=== PATIENT | male | born 1990 | race Caucasian/White ===

== ENCOUNTER 2021-01-19 14:53 | Outpatient (REF) | payer OTHER, SELFPAY ==
[2021-01-21 15:05] LABS: COVID-19 RT-PCR UVMMC Result Negative (Negative)
== END 2021-01-19 14:54 | disposition home or self-care (01) ==
LOC: LBN 14:53
PROVIDERS: PCP Nurse Practitioner Family; Visit Provider Physician Assistant Medical
DX: Z20.822 Contact with and (suspected) exposure to COVID-19 (principal); J06.9 Acute upper respiratory infection, unspecified
CPT/HCPCS: U0003

== ENCOUNTER 2022-04-05 02:52 | Outpatient (CLI) | payer OTHER, SELFPAY ==
[2022-04-05 08:09] LABS: Glucose 125 mg/dL (74-106)
== END 2022-04-05 02:53 | disposition home or self-care (01) ==
LOC: LBO 02:52
PROVIDERS: PCP Nurse Practitioner Family; Visit Provider Nurse Practitioner Family
DX: Z13.1 Encounter for screening for diabetes mellitus (principal)
CPT/HCPCS: 36415; 82947

== ENCOUNTER 2024-10-10 18:00 | Emergency (ER) | payer OTHER, SELFPAY ==
[2024-10-10] VITALS (125 sets, daily range): BP systolic 118–152; BP diastolic 79–99; PULSE 72–106; RESP 10–32; TEMP 36.8–37.1; O2SAT 94–100
--- NOTE | 2024-10-10 18:00 | RT.EKG_ITS ---
APPROVED REPORT Exam: Resting ECG Reason for Exam: sob, muscle pain Patient Location: E HR:92 bpm ECG Measurements Heart Rate 92 AXIS VA 112 P 77 QRSd 85 QRS 75 QT 326 T 49 QTc 405 Conclusion Sinus rhythm...normal P axis, V-rate 60- 99 HYPERACUTE T WAVES
--- NOTE | 2024-10-10 18:29 | W.ED.GENAD ---
Discharge Plan Disposition Patient Disposition: Transfer-Acute Inpatient Care Specific Acute Inpt Facility: [facility] Condition: Stable Discharge Details Clinical Impression: Acute coronary syndrome, Non-STEMI (non-ST elevated myocardial infarction) Primary Care Provider: Unknown,Unknown ED Provider: Oseas Link Home Meds and New Rx's Prescriptions: Continued multivitamin Tablet 1 tab PO DAILY HPI General Date/Time Provider Initiated Documentation: 10/10/24 18:17. HPI Narrative: Patient presents emergency department stating that on Tuesday he started feeling mild shortness of breath when he did his routine from work. 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 Also reported that he started having some back chest wall pain was due to twisting it. This morning he woke up at 3 in the morning with a pressure sensation in the anterior part of his chest every to his back and went down both arms. States that this sensation lasted about 1 hour and got relieved after taking 2 episodes. 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 He went home after the chiropractor visit in the morning but decided to go to urgent care earlier this afternoon but he was concerned and urgent care sent him here for they were closing and have the resources to help him. Here he states he is completely pain-free does not have the sensation but is concerned especially because of what happened earlier this morning at 3 AM. He has no family history of heart disease no h/o high cholesterol does not smoke cigarettes or drink alcohol Related Data Home Medications ?Medication ?Instructions ?Recorded ?Confirmed multivitamin 1 tab PO DAILY 03/18/21 10/10/24 Allergies Allergy/AdvReac Type Severity Reaction Status Date / Time No Known Allergies Allergy Verified 10/10/24 18:21 General Stated Complaint: SOB BRAD: 3 Review of Systems Narrative: Review of Systems: Constitutional: No fevers, chills, sweats Eye: No recent visual problems ENT: No ear pain, nasal congestion, sore throat Respiratory: No shortness of breath, cough Cardiovascular: No Chest pain at this time, palpitations, syncope Gastrointestinal: No nausea, vomiting, diarrhea Genitourinary: No hematuria Rodolfo/Lymph: Negative for bruising tendency, swollen lymph glands Endocrine: Negative for excessive thirst, excessive hunger Musculoskeletal: No back pain, neck pain, joint pain, muscle pain, decreased range of motion Integumentary: No rash, pruritus, abrasions Neurologic: Alert & oriented X 4 Psychiatric: No anxiety, depression Exam Narrative Exam Narrative: Exam; vitals signs as reported above normal Constitutional; In no acute distress, afebrile General: cooperative, healthy appearing, comfortable and no acute distress HEENT: Head: normal to inspection, no palpable skull fracture and normocephalic atraumatic Eyes: : appearance normal, both eyes and all related structures EOM intact bilaterally Pupils: PERRL : conjunctiva normal Direct ophthalmoscopy: normal light reflex, normal conjunctiva, normal visual acuity Ears: Normal TM, normal external canal Nose: normal no rhinorreha Neck no JVD, supple non tender Neck: normal visual inspection, full ROM and no lymphadenopathy Chest: normal inspection of the chest Respiratory : normal respiratory effort and able to speak in complete sentences no wheezing no rales Cardio Rate: regular rate, rhythm: regular rhythm normal heart sounds S1 and S2 no murmurs, gallops, or rubs GI : normal to inspection, normal bowel sounds, soft, non tender, non distended, no organomegaly Back/Spine/ no CVA tenderness Thoracic/Lumbar Spine: no tenderness or deformities Skin no rashes or lesions Neuro: patient alert oriented x 4 and no meningeal signs, Cranial Nerves: CN's II-XI intact bilaterally, Cognition: normal cognition, Speech: speech normal, Gait: normal gait, Depp tendon reflexes normal 2+ muscle strength 5/5 bilaterally Extremities, no edema, full range of motion, normal strength Course Vital Signs Vital signs: Vital Signs Temperature 37.1 C 10/10/24 18:05 Pulse 106 H 10/10/24 18:05 Respiratory Rate 20 10/10/24 18:05 Blood Pressure 118/82 10/10/24 18:05 Pulse Oximetry 98 10/10/24 18:05 Temperature 36.8 C 10/10/24 18:22 Temperature Source Oral 10/10/24 18:22 Pulse 106 H 10/10/24 18:22 Respiratory Rate 20 10/10/24 18:22 Blood Pressure 118/82 10/10/24 18:22 Blood Pressure Position Sitting 10/10/24 18:05 Pulse Oximetry 98 10/10/24 18:22 Oxygen Delivery Method Room Air 10/10/24 18:22 Oxygen Flow Rate 0 10/10/24 18:05 Pain Level 0 10/10/24 18:05 Medical Decision Making MDM: Summary: patient who emergency department stating that on Tuesday he started feeling mild shortness of breath when he did his routine from work. 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 Also reported that he started having some back chest wall pain was due to twisting it. This morning he woke up at 3 in the morning with a pressure sensation in the anterior part of his chest every to his back and went down both arms. States that this sensation lasted about 1 hour and got relieved after taking 2 episodes. 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 He went home after the chiropractor visit in the morning but decided to go to urgent care earlier this afternoon but he was concerned and urgent care sent him here for they were closing and have the resources to help him. Here he states he is completely pain-free does not have the sensation but is concerned especially because of what happened earlier this morning at 3 AM. In the emergency department patient completely for history of shortness of breath, patient bedside echocardiogram and an EKG done within normal limits she also had CT of the aorta pulmonary vessels that did not show dissection or kidney embolus. According I spoke with cardiology service I do not suspect [facility] in the setting patient for cardiac catheterization.. He was given metoprolol 5 mg x 2, 325 chewable aspirin, loaded with Brilinta 180 mg p.o. and heparin. He will be transported to the [facility] for cardiac catheterization if he still remains pain-free Data Review Analysis All the data on this patient was reviewed by me including laboratory and imaging studies as well as bedside studies performed by me Independent review of Studies Imaging Patient had a [id number] ultrasound done shows normal LV no pericardial effusion no evidence of regional wall abnormalities, CT angiogram of the thoracic and abdominal aorta shows no pulm embolism no aortic dissection Lab: Labs unremarkable except for the troponin that is elevated at 7000 range but has not significantly increased here in the ED Risk Stratification: Patient presented with episode of chest pressure that had early this morning at 3 AM his troponin is elevated with a normal EKG and normal echocardiogram with a transfer to [facility] for cardiac catheterization. He was accepted by the cardiology service by Dr. Hughes Differential Diagnosis: 1. Acute coronary syndrome 2. Non-STEMI 3. Aortic dissection 4. Pulmonary embolus 5. Coronary vasospasm Consultants: Consulted with cosmetic maker representing Dr. Hughes at [facility] Shared disposition: Patient is since disposition and understands that he will need to be transferred to [facility] for cardiac catheterization Impression: Lab Data Lab results reviewed: Yes I reviewed the patient's lab results. ECG Data Attestation: I personally reviewed and interpreted this ECG (s) as follows: Prior ECG tracings: available for review Interpretation: Heart rate 82 hyperacute T waves V2 to [address]-T changes Core Measures AMI Core Measures Followed: Yes Critical Care Time Critical Care Time Critical Care Time: Yes Total Critical Care Time: 45 Attestation: 45 minutes of critical care time excluding procedures PFSH All Active Problems (Updated 10/10/24 @ 23:15 by Oseas Link MD) Non-STEMI (non-ST elevated myocardial infarction) (Acute) Acute coronary syndrome (Acute) IFG (impaired fasting glucose) (Acute) Medical History Low back pain Left humeral fracture (03/28/99) Surgical History Status post wisdom tooth extraction (~2011) Family History Brother Diabetes Type II Maternal Grandmother Neoplasm Unknown Paternal Grandmorther CHF (congestive heart failure) Brother No problems noted. Mother No problems noted. Father Essential hypertension Social History Smoking/Tobacco Use Status: Never Smoking risk assessment performed?: Yes Alcohol Intake: current Alcohol Intake frequency: a few times a week Alcohol type: beer Drug use: Rarely Substance use type: marijuana Counseling given: No Adopted: No Caregiver/Support person: No Foster care: No Household members: spouse Housing: house Number of Children: 1 Communication Needs: None Education Level: high school Do you need help understanding health information?: Rarely current occupation: Self employed - Farming Pets and animals: Yes Pets and animals: cat(s) and farm animals Sexually active: Yes Do you think of yourself as: straight/heterosexual Current gender identity: male What is your relationship status?: How often do you talk on the phone with friends or family?: twice per week How often do you get together with friends or relatives?: once per week Do you belong to any clubs or organized social groups?: no Panel score (0-1 are the most socially isolated patients): 2 What type of physical activity do you participate in: other Details: Active with farm activities Frequency: daily Yue/Pentecostalism: None Special yue needs: No Seatbelt use: always Helmet use: Yes Drive intox or ride w/intox class b truck driver: No Water heater temp set <120 deg: Yes Working smoke detector in home: Yes Fire extinguisher in home: Yes Carbon monox detector in home: Yes Firearms in home: Yes Firearms unloaded and locked: Yes Do you feel safe at home: Yes Do you feel safe in your relationship?: Yes Victim of physical abuse: No Victim of emotional abuse: No Victim of sexual abuse: No POCUS Exam (ED) Limited Cardiac Exam DATE OF EXAM: 10/10/24 TIME OF EXAM: 20:15 PROVIDER THAT PERFORMED THE STUDY: Oseas Link REASON FOR EXAM: Chest pain and Dyspnea VISUALIZED STRUCTURES: Four Chambers, Left atrium, Left ventricle, LVOT, Right atrium, Right ventricle, Aortic valve, Mitral valve, Interventricular septum and IVC VIEW OBTAINED: Apical 4-Chamber, Parasternal long-axis, Parasternal short-axis and Subxiphoid PERTINENT FINDINGS/IMPRESSION: No apparent abnormalities DIFFERENTIAL DIAGNOSES: Rule out PE for acute coronary syndrome Exam complete Vital Signs & Lab Results Vital Signs Most Recent Vital Signs: Most Recent Vital Signs Temp Pulse Resp BP Pulse Ox 36.8 C 85 21 140/86 96 10/10/24 18:22 10/10/24 23:16 10/10/24 23:16 10/10/24 23:16 10/10/24 23:16 Lab Results 10/10/24 19:19 08/13/25 19:19 Complete Blood Count: WBC, (4.4-10.8) 7.15 10^3/uL Today, 19:19 RBC, (4.36-5.78) 5.10 10^6/uL Today, 19:19 Hgb, (13.5-17.5) 14.5 g/dL Today, 19:19 Hct, (40.0-50.0) 43.6 % Today, 19:19 Plt Count, (130-400) 281 10^3/uL Today, 19:19 Complete Metabolic Panel: Sodium, (136-145) 140 mmol/L Today, 19:19 Potassium, (3.5-5.1) 4.0 mmol/L Today, 19:19 Chloride, (98-107) 103 mmol/L Today, 19:19 Carbon Dioxide, (21.0-32.0) 31.0 mmol/L Today, 19:19 BUN, (7-18) 18 mg/dL Today, 19:19 Creatinine, (0.70-1.30) 1.1 mg/dL Today, 19:19 Est GFR (CKD-EPI 2020), (mL/min/1.73m2) 89.78 Today, 19:19 Magnesium, (1.8-2.4) 2.0 mg/dL Today, 19:19 Calcium, (8.5-10.1) 9.5 mg/dL Today, 19:19 Albumin, (3.4-5.0) 4.2 g/dL Today, 19:19 Glucose, (74-106) 141 mg/dL H Today, 19:19 Liver Function Panel: ALT, (16-63) 48 U/L Today, 19:19 AST, (15-37) 61 U/L H Today, 19:19 Coagulation Panel: INR, (0.9-1.1) 1.0 Today, 19:19 PT, (9.1-11.1) 10.3 sec Today, 19:19 APTT, (20.6-30.2) 28.3 sec Today, 19:19 D-Dimer, (<500) 225 ng/mlFEU Today, 19:19 Cardiac Panel: Troponin I, (<or=76) 7187 ng/L H* Today
[2024-10-10 19:29] LABS: Abs Immature Grans 0.03 10^3/uL (0.0-0.06); HCT 43.6 % (40.0-50.0); HGB 14.5 g/dL (13.5-17.5); Immature Grans % 0.4 %; MCH 28.4 pg (27.0-33.0); MCHC 33.3 % (32.0-36.0); MCV 86 fL (80-95); MPV 8.8 fL (8.0-11.0); Platelet Count 281 10^3/uL (130-400); RBC 5.10 10^6/uL (4.36-5.78); RDW 12.9 % (11.8-14.1); RDW-SD 39.7 fL; WBC 7.15 10^3/uL (4.4-10.8)
[2024-10-10 19:46] LABS: INR 1.0 (0.9-1.1); PTT Activated 28.3 sec (20.6-30.2); Prothrombin Time 10.3 sec (9.1-11.1)
[2024-10-10 19:56] LABS: ALT 48 U/L (16-63); AST 61 U/L (15-37); Albumin 4.2 g/dL (3.4-5.0); Alkaline Phosphatase 130 U/L (46-116); Anion Gap 6.0 mmol/L (3-11); BUN 18 mg/dL (7-18); Bilirubin, Total 0.3 mg/dL (0.2-1.0); CO2 31.0 mmol/L (21.0-32.0); Calcium 9.5 mg/dL (8.5-10.1); Chloride 103 mmol/L (98-107); Estimated GFR 89.78 (mL/min/1.73m2); Glucose 141 mg/dL (74-106); Magnesium 2.0 mg/dL (1.8-2.4); Potassium 4.0 mmol/L (3.5-5.1); Sodium 140 mmol/L (136-145); Total Protein 7.9 g/dL (6.4-8.2)
[2024-10-10 19:57] LABS: Troponin I 6698 ng/L (<or=76)
[2024-10-10 20:09] LABS: D-Dimer 225 ng/mlFEU (<500)
[2024-10-10 20:47] LABS: Troponin I 7140 ng/L (<or=76)
--- NOTE | 2024-10-10 20:59 | DI.CT_ITS ---
Exam(s) CT THORAX ABD/PEL CTA EXAM: CT THORAX ABD/PEL CTA CLINICAL HISTORY: CHEST PAIN. TECHNIQUE: Imaging Protocol: Axial CT angiography was performed with multi- slice acquisition and multi-planar and/or 3D reconstructions. CONTRAST MATERIAL: Intravenous: Omnipaque 350 Contrast volume:100 mL Oral: No COMPARISON: No exams were available for comparison FINDINGS: CHEST: Pulmonary Arteries: No evidence of filling defect to suggest pulmonary emboli. Tracheobronchial tree: Patent where visualized. Mediastinum and Rola: No dominant adenopathy or fluid collection. Pulmonary parenchyma: No consolidation or dominant measurable mass. No architectural distortion. Pleura: No effusion or pneumothorax. Heart: The heart is not dilated. No coronary artery calcifications are seen. Aorta: Thoracic aorta non-dilated. No atherosclerotic changes. Bones: Normal. Tubes, Catheters, and Lines: None Abdominal and pelvic vasculature: Abdomen: No atherosclerotic changes. Celiac axis/mesenteric arteries: No evidence of occlusion or significant stenosis. Renal Arteries: No evidence of occlusion or significant stenosis. There is a single renal artery perfusing each kidney. Aorta: No evidence of occlusion or significant stenosis. No aneurysm or dissection. Pelvis: No atherosclerotic changes. Iliac Arteries: No evidence of occlusion or significant stenosis. Common Femoral Arteries: No evidence of occlusion or significant stenosis. ABDOMEN: Liver: Normal density. No measurable mass. Portal, Superior Mesenteric, and Splenic Veins: Unremarkable. Gallbladder and Biliary Tract: No radiodense calculus or dilation. Pancreas: Normal density, no abnormal calcifications or inflammatory process. Spleen: Normal. Adrenals: No masses seen. Kidneys: Normal size, contour and axis. No radiodense stones or obstructive uropathy. No masses seen. Bowel: No obstruction or bowel wall thickening. Appendix is unremarkable. Normal quantity of stool. Peritoneal Cavity: No ascites, collection or mesenteric inflammatory response. Lymph Nodes: Within normal limits. Bones: Unremarkable. Soft Tissues: Tiny fat containing umbilical hernia. PELVIS: Bladder: Symmetric distention, no gross wall thickening. Reproductive Organs: Unremarkable as visualized. Lymph Nodes: Within normal limits. Bones: Within normal limits. IMPRESSION: Normal CT Angiogram of the chest, abdomen and pelvis. The preliminary [facility] report was reviewed. RADIATION DOSE DELIVERED: 877.97mGy.cm Total DLP DATA REPOSITORY: All CT scans at this facility are submitted to the National Radiology Data Registry (NRDR) Dose Index Registry (DIR) with the [employer] (ACR). RADIATION OPTIMIZATION: All CT scans at this facility use at least one of these dose optimization techniques: automated exposure control; mA and/or kV adjustment per patient size (includes targeted exams where dose is matched to clinical indication); or iterative reconstruction.
[2024-10-10] MEDS: Metoprolol 5 MG/5 ML VIAL IVP ×2 (21:07→21:47)
[2024-10-10] MEDS: Aspirin 81 MG CHEW 325 MG CH (21:07)
[2024-10-10] MEDS: Normal Saline - Diluent 50 ML VIAL IJ (21:12)
[2024-10-10] MEDS: Omnipaque 350 MG/ML 100 ML BTL IJ (21:12)
[2024-10-10] MEDS: Normal Saline Flush 10 ML SYR IVP (21:13)
--- NOTE | 2024-10-10 21:53 | DI.[facility]_ITS ---
PROCEDURE INFORMATION: Exam: CTA Chest With Contrast CTA Abdomen and Pelvis With Contrast Exam date and time: 10/10/2024 9:12 PM Age: 34 years old Clinical indication: Other: Chest pain, dissection TECHNIQUE: Imaging protocol: Computed tomographic angiography of the chest with contrast. Exam focused on the arteries. Computed tomographic angiography of the abdomen and pelvis with contrast. Exam focused on the arteries. 3D rendering (Not supervised by radiologist): MIP and/or 3D reconstructed images were created by the technologist. Contrast material: OMNIPAQUE 350; Contrast volume: 100 ml; Contrast route: INTRAVENOUS (IV); COMPARISON: No relevant prior studies available. FINDINGS: VASCULATURE: Pulmonary arteries: No pulmonary embolism identified. Aorta: No thoracic or abdominal aortic aneurysm or dissection. Celiac trunk and mesenteric arteries: Celiac artery, superior mesenteric artery, and inferior mesenteric artery widely patent. Renal arteries: Right and left renal arteries widely patent bilaterally. Right iliac arteries: Right common iliac, internal iliac, and external iliac arteries widely patent. Right femoral/popliteal arteries: Right common femoral and visualized proximal right superficial femoral arteries widely patent. Left iliac arteries: Left common iliac, internal iliac, and external iliac arteries widely patent. Left femoral/popliteal arteries: Left common femoral and visualized proximal left superficial femoral arteries widely patent. Thyroid: Normal-sized thyroid gland. CHEST: Lungs: No pulmonary consolidation. Pleural spaces: No pleural effusion or pneumothorax. Heart: Normal-sized heart. No pericardial effusion. ABDOMEN AND PELVIS: Liver: Probable fatty infiltration of the liver, difficult to confidently diagnose by CT imaging after administration of intravenous contrast. Gallbladder and biliary ducts: Gallbladder partially collapsed. No calcified gallstones seen. No biliary dilatation. Pancreas: Normal appearing pancreas. Spleen: Normal appearing spleen. Adrenal glands: Normal appearing adrenal glands. Kidneys and ureters: Normal appearing kidneys. No hydronephrosis. No obstructing ureteral stones. Stomach and bowel: No oral contrast. Stomach partially decompressed. No small bowel dilatation to suggest obstruction. Normal-appearing colon. No evidence of diverticulitis or colitis. Appendix: Normal appendix. Intraperitoneal space: No gross ascites or free air. Urinary bladder: Urinary bladder partially collapsed but grossly unremarkable, as seen. Reproductive: Normal-appearing prostate gland and seminal vesicles. Lymph nodes: No pathologically enlarged mediastinal or hilar lymph nodes. Scattered small mesenteric lymph nodes, nonspecific. Bones/joints: No acute fracture seen among the bones of the chest, abdomen, or pelvis. Soft tissues: No gross soft tissue mass or fluid collection seen in the chest wall. Small fat containing ventral hernia at the umbilicus. IMPRESSION: 1. No thoracic or abdominal aortic aneurysm or dissection. 2. Probable fatty infiltration of the liver, difficult to confidently diagnose by CT imaging after administration of intravenous contrast. Dictated and Authenticated by: Lokesh Vega MD. Orderin Fariba Farooq MD
[2024-10-10] MEDS: Heparin in 0.45% NaCl 25,000 UNIT/250 ML BAG 10 UNIT IVINF (22:51)
[2024-10-10 23:10] LABS: Troponin I 7187 ng/L (<or=76)
[2024-10-10 23:17] LABS: PTT Activated 29.4 sec (20.6-30.2)
== END 2024-10-11 00:09 | disposition short-term general hospital (02) ==
PROVIDERS: Emergency Provider Emergency Medicine Emergency Medical Services
DX: I21.4 Non-ST elevation (NSTEMI) myocardial infarction (principal); I24.9 Acute ischemic heart disease, unspecified
CPT/HCPCS: 36415; 71275; 80053; 85027; 93005; 93308; 96365; 96375; 99291; 74174; 83735; 84484; 85025; 85379; 85610; 85730; 93010; J1644; J3490

== ENCOUNTER 2024-11-06 08:18 | Outpatient (CLI) | payer OTHER, SELFPAY ==
[2024-11-06 12:47] LABS: Abs Immature Grans 0.01 10^3/uL (0.0-0.06); HCT 44.0 % (40.0-50.0); HGB 14.8 g/dL (13.5-17.5); Immature Grans % 0.2 %; MCH 29.1 pg (27.0-33.0); MCHC 33.6 % (32.0-36.0); MCV 86 fL (80-95); MPV 8.9 fL (8.0-11.0); Platelet Count 266 10^3/uL (130-400); RBC 5.09 10^6/uL (4.36-5.78); RDW 12.9 % (11.8-14.1); RDW-SD 40.2 fL; WBC 5.59 10^3/uL (4.4-10.8)
[2024-11-06 13:37] LABS: ALT 40 U/L (16-63); AST 16 U/L (15-37); Albumin 4.3 g/dL (3.4-5.0); Alkaline Phosphatase 122 U/L (46-116); Anion Gap 7.2 mmol/L (3-11); BUN 17 mg/dL (7-18); Bilirubin, Total 0.4 mg/dL (0.2-1.0); CO2 30.8 mmol/L (21.0-32.0); Calcium 9.3 mg/dL (8.5-10.1); Chloride 102 mmol/L (98-107); Estimated GFR 89.78 (mL/min/1.73m2); Glucose 90 mg/dL (74-106); Potassium 4.5 mmol/L (3.5-5.1); Sodium 140 mmol/L (136-145); Total Protein 7.8 g/dL (6.4-8.2)
[2024-11-06 16:38] LABS: GGT 26 U/L (15-85)
[2024-11-06 17:13] LABS: Vitamin D 25 Total 35 ng/mL (30-100)
[2024-11-07 12:08] LABS: Lyme Ab w Rflx to Lyme Confirm Negative (Negative)
[2024-11-08 22:37] LABS: B. miyamotoi PCR Negative (Negative); Babesia divergens/MO-1 Negative (Negative); Ehrlichia muris eauclairensis Negative (Negative)
== END 2024-11-06 08:19 | disposition home or self-care (01) ==
LOC: LBO 11-07 08:18
PROVIDERS: Visit Provider Nurse Practitioner Family
DX: I40.1 Isolated myocarditis (principal); R10.2 Pelvic and perineal pain; R74.8 Abnormal levels of other serum enzymes
CPT/HCPCS: 36415; 80053; 82306; 87798; 82977; 85025; 86618

== ENCOUNTER 2024-11-06 15:03 | Outpatient (REF) | payer OTHER, SELFPAY | END 2024-11-06 15:04 | disposition home or self-care (01) | LOC: NCHCN 15:03 | PROVIDERS: Visit Provider Nurse Practitioner Family | DX: R10.2 Pelvic and perineal pain (principal) | CPT/HCPCS: 87086 ==

== ENCOUNTER → 2025-02-09 14:30 | Outpatient (CLI) | payer OTHER, SELFPAY ==
--- NOTE | 2025-02-09 13:48 | DI.RAD_ITS ---
Exam(s) XR SHOULDER RT COMPLETE 2+V EXAM: XR SHOULDER RT COMPLETE 2+V CLINICAL HISTORY: shoulder pain, right. TECHNIQUE: 2D digital imaging was performed. Four views. COMPARISON: No exams were available for comparison FINDINGS: BONES: No acute fracture is present. No bony destructive lesion is seen. JOINTS: No dislocation present. SOFT TISSUE: Normal. IMPRESSION: No acute abnormality. The preliminary [facility] report was reviewed. DATA REPOSITORY: RADIATION DOSE DELIVERED:
--- NOTE | 2025-02-09 14:20 | DI.[facility]_ITS ---
PROCEDURE INFORMATION: Exam: XR Right Shoulder Exam date and time: 02/09/2025 1:30 PM Age: 34 years old Clinical indication: Pain; Shoulder; Right; Injury 1 day ago TECHNIQUE: Imaging protocol: Radiologic exam of the right shoulder. Views: 2 or more views. COMPARISON: CT THORAX ABD/PEL CTA 10/10/2024 9:12 PM FINDINGS: Bones/joints: There is no evidence of acute fracture.There is no evidence of malalignment or dislocation. Soft tissues: Normal. IMPRESSION: There is no evidence of acute fracture.There is no evidence of malalignment or dislocation. Dictated and Authenticated by: Domenica Bradley MD. Orderin Edilma Travis MD
== END ==
LOC: DI 03-06 14:31
PROVIDERS: Visit Provider Nurse Practitioner Family
DX: M25.511 Pain in right shoulder (principal)
CPT/HCPCS: 73030

== ENCOUNTER 2025-02-12 15:43 | Outpatient (REF) | payer OTHER, SELFPAY ==
[2025-02-12 21:36] LABS: Anion Gap 8.1 mmol/L (3-11); BUN 26 mg/dL (9-23); CO2 28.9 mmol/L (20.0-31.0); Calcium 10.0 mg/dL (8.3-10.6); Chloride 102 mmol/L (98-107); Glucose 78 mg/dL (74-106); Potassium 4.7 mmol/L (3.5-5.1); Sodium 139 mmol/L (136-145)
== END 2025-02-12 15:44 | disposition home or self-care (01) ==
LOC: NCHCN 15:43
PROVIDERS: Visit Provider Family Medicine
DX: I10 Essential (primary) hypertension (principal)
CPT/HCPCS: 80048